=== PATIENT | female | born 1945 | race Caucasian/White ===

== ENCOUNTER 2020-05-08 09:52 | Emergency (ER) | payer MEDICARE, OTHER ==
[~2020-05-08] VITALS: Ht 160 cm; Wt 59.1 kg
[~2020-05-08 09:52] MED LIST: CITA20TA2 PO; PANT-47 PO
[2020-05-08] MEDS ORDERED: normal saline 1000ML IV soln IVB ONE (10:55)
[2020-05-08 12:55] VITALS: BP 140/61
== END 2020-05-08 12:53 | disposition home or self-care (01) ==
LOC: ER 09:53
DX: T45.1X1A Poisoning by antineoplastic and immunosuppressive drugs, accidental (unintentional), initial encounter (principal); T40.7X1A Poisoning by cannabis (derivatives), accidental (unintentional), initial encounter; R42 Dizziness and giddiness; Z88.6 Allergy status to analgesic agent; Z88.8 Allergy status to other drugs, medicaments and biological substances; Z90.49 Acquired absence of other specified parts of digestive tract; Z90.710 Acquired absence of both cervix and uterus; Y92.89 Other specified places as the place of occurrence of the external cause
CPT/HCPCS: 96360; 99283; J7030